=== PATIENT | female | born 1980 | race African-American/Black ===

== ENCOUNTER 2019-11-16 02:28 | Emergency (ER) | payer SELFPAY ==
[2006-06-30 20:05] VITALS: BP 112/61
[~2019-11-16] VITALS: Ht 165.1 cm; Wt 98.6 kg
[~2019-11-16 02:28] MED LIST: ABILIFY5 MG PO; BACTRIM DS 8001 TAB PO; CEPHALEXIN500 M1 PO; EFFEXOR 75M75 MG/TAB PO; EFFEXOR-XR150 MG PO; ERY-TAB250 M1 PO; FLEXERIL 1010 MG/TAB PO; GLUCOPHAGE500 MG/TAB PO; HALDOL 5MG T5 MG/TAB PO; HCTZ12.5TAB PO; HTN MEDICATION; KEFLEX500 MG PO; MEDROL 4MG DOSPA4 MG PO; NORCO 325 MG-51 TAB PO; NORCO 325 MG-7.1 TAB PO; PERCOCET 325 MG1 TA2 PO; PRINIVIL10 MG PO; PRINIVIL20 MG PO; RISPERDAL 1M1 MG/TAB PO; SEPTRA DS 8001 TAB PO; TYLENOL 325MG325 MG PO; ZOCOR 10MG10 MG PO
[2019-11-16 02:37] VITALS: TEMP 98.1
[2019-11-16 03:53] LABS: COLLECTION METHOD CLEAN CATCH
[2019-11-16 03:56] LABS: BASO % 0.4 % (0.0-2.0); EOS # 0.4 (0.0-0.7); EOS % 3.9 % (0-4.0); GRAN # 6.3 (1.4-6.5); GRAN % 58.7 % (42.2-75.2); HEMOGLOBIN 10.7 g/dl (12.5-16.0); LYMPH # 3.4 (1.2-3.4); LYMPH % 31.6 % (20.0-51.0); MEAN CELL VOLUME 86 fl (80.0-100.0); MEAN CORPUSCULAR HEMOGLOBIN 28 pg (27.0-31.0); MEAN CORPUSCULAR HGB CONC 32 g/dl (33.0-37.0); MEAN PLATELET VOLUME 9.1 fl (7.4-10.4); MONO # 0.5 (0.1-0.6); MONO % 5.1 % (1.7-9.3); PLATELET COUNT 311 K/mm3 (130-400); RED BLOOD COUNT 3.82 M/mm3 (4.10-5.30); REDCELL DISTRIBUTION WIDTH-CV 13.8 % (11.5-14.5)
[2019-11-16 04:03] LABS: MUCOUS Present /lpf; PH 6 (5-8); URINE APPEARANCE Hazy; URINE BACTERIA Rare /hpf; URINE BILIRUBIN Negative (NEGATIVE); URINE BLOOD Negative (NEGATIVE); URINE COLOR Yellow; URINE GLUCOSE Negative (NEGATIVE); URINE KETONE Negative (NEGATIVE); URINE LEUKOCYTE ESTERASE Negative (NEGATIVE); URINE NITRATE Negative (NEGATIVE); URINE PROTEIN(semi-quant) Negative (NEGATIVE); URINE RBC 0-2 /hpf; URINE UROBILINOGEN Negative (NEGATIVE)
[2019-11-16 04:08] LABS: ALBUMIN 3.6 gm/dL (3.5-5.0); BILIRUBIN,TOTAL 0.1 mg/dL (0.0-1.0); C-REACTIVE PROTEIN 1.9 mg/dL (0.0-0.9); CALCIUM 9.2 mg/dL (8.4-10.2); CREATININE, serum 0.56 (0.52-1.25); POTASSIUM 3.8 mmol/L (3.4-5.0); TOTAL PROTEIN 7.2 gm/dL (6.4-8.2)
[2019-11-16 07:12] VITALS: BP 152/92; PULSE 76
== END 2019-11-16 07:12 | disposition home or self-care (01) ==
LOC: COL.ER 02:28
PROVIDERS: Emergency Medicine
DX: R10.32 Left lower quadrant pain (principal); R10.31 Right lower quadrant pain
CPT/HCPCS: J7030; Q9967

== ENCOUNTER 2020-01-20 18:35 | Emergency (ER) | payer SELFPAY ==
[2006-06-30 20:05] VITALS: BP 112/61
[~2020-01-20] VITALS: Ht 167.6 cm; Wt 106.4 kg
[2020-01-20 18:37] VITALS: TEMP 98.7
[2020-01-20 19:04] LABS: BASO % 0.4 % (0.0-2.0); EOS # 0.2 (0.0-0.7); EOS % 1.7 % (0-4.0); GRAN # 6.6 (1.4-6.5); GRAN % 61.1 % (42.2-75.2); HEMATOCRIT 36.4 % (37.0-47.0); HEMOGLOBIN 11.7 g/dl (12.5-16.0); LYMPH # 3.3 (1.2-3.4); LYMPH % 31.2 % (20.0-51.0); MEAN CELL VOLUME 84 fl (80.0-100.0); MEAN CORPUSCULAR HEMOGLOBIN 27 pg (27.0-31.0); MEAN CORPUSCULAR HGB CONC 32 g/dl (33.0-37.0); MEAN PLATELET VOLUME 9.2 fl (7.4-10.4); MONO # 0.6 (0.1-0.6); MONO % 5.4 % (1.7-9.3); PLATELET COUNT 392 K/mm3 (130-400); RED BLOOD COUNT 4.33 M/mm3 (4.10-5.30); REDCELL DISTRIBUTION WIDTH-CV 14.3 % (11.5-14.5)
[2020-01-20 19:08] LABS: ALBUMIN 4.3 gm/dL (3.5-5.0); BILIRUBIN,TOTAL 0.5 mg/dL (0.0-1.0); C-REACTIVE PROTEIN 2.1 mg/dL (0.0-0.9); CALCIUM 9.6 mg/dL (8.4-10.2); CREATININE, serum 0.54 (0.52-1.25); POTASSIUM 3.6 mmol/L (3.4-5.0); TOTAL PROTEIN 8.6 gm/dL (6.4-8.2)
[2020-01-20 19:22] LABS: PROLACTIN 9.1 ng/mL (3.0-18.6)
[2020-01-20 20:30] VITALS: BP 115/76; PULSE 76
== END 2020-01-20 20:30 | disposition home or self-care (01) ==
LOC: COL.ER 18:35
PROVIDERS: Emergency Medicine
DX: R56.9 Unspecified convulsions (principal); E11.9 Type 2 diabetes mellitus without complications; Z79.84 Long term (current) use of oral hypoglycemic drugs
CPT/HCPCS: J2060; J7030

== ENCOUNTER → 2020-03-02 | Outpatient (CLI) | payer SELFPAY | LOC: COL.CARD 08:54 | DX: G40.909 Epilepsy, unspecified, not intractable, without status epilepticus (principal) ==

== ENCOUNTER → 2020-04-22 | Emergency (ER) | payer SELFPAY ==
[2006-06-30 20:05] VITALS: BP 112/61
[~2020-04-22] VITALS: Ht 167.6 cm; Wt 110.5 kg
[2020-04-22 08:34] VITALS: BP 131/85; PULSE 81; TEMP 98.1
[2020-04-22 09:36] LABS: COLLECTION METHOD CLEAN CATCH
[2020-04-22 09:42] LABS: BASO % 0.3 % (0.0-2.0); EOS # 0.4 (0.0-0.7); EOS % 4.6 % (0-4.0); GRAN # 4.9 (1.4-6.5); GRAN % 55.1 % (42.2-75.2); HEMOGLOBIN 11.5 g/dl (12.5-16.0); LYMPH # 3.1 (1.2-3.4); LYMPH % 35.1 % (20.0-51.0); MEAN CELL VOLUME 85 fl (80.0-100.0); MEAN CORPUSCULAR HEMOGLOBIN 28 pg (27.0-31.0); MEAN CORPUSCULAR HGB CONC 33 g/dl (33.0-37.0); MEAN PLATELET VOLUME 8.8 fl (7.4-10.4); MONO # 0.4 (0.1-0.6); MONO % 4.7 % (1.7-9.3); PLATELET COUNT 341 K/mm3 (130-400); RED BLOOD COUNT 4.17 M/mm3 (4.10-5.30); REDCELL DISTRIBUTION WIDTH-CV 14.2 % (11.5-14.5)
[2020-04-22 09:45] LABS: HEMATOCRIT 35.4 % (37.0-47.0); MUCOUS Present /lpf; PH 5 (5-8); SQUAMOUS EPITHELIAL 0-2 /hpf; URINE APPEARANCE Clear; URINE BACTERIA None Seen /hpf; URINE BILIRUBIN Negative (NEGATIVE); URINE BLOOD 1+ (NEGATIVE); URINE COLOR Yellow; URINE GLUCOSE 1+ (NEGATIVE); URINE KETONE Negative (NEGATIVE); URINE LEUKOCYTE ESTERASE Negative (NEGATIVE); URINE NITRATE Negative (NEGATIVE); URINE PROTEIN(semi-quant) Negative (NEGATIVE); URINE UROBILINOGEN Negative (NEGATIVE)
[2020-04-22 09:54] LABS: ALBUMIN 3.7 gm/dL (3.5-5.0); BILIRUBIN,TOTAL 0.2 mg/dL (0.0-1.0); CALCIUM 8.7 mg/dL (8.4-10.2); CREATININE, serum 0.54 (0.52-1.25); POTASSIUM 3.9 mmol/L (3.4-5.0); TOTAL PROTEIN 7.2 gm/dL (6.4-8.2)
[2020-04-22 10:07] LABS: C-REACTIVE PROTEIN 1.4 mg/dL (0.0-0.9)
== END ==
LOC: COL.ER 08:25
PROVIDERS: Physician Assistant
DX: K59.00 Constipation, unspecified (principal); R10.9 Unspecified abdominal pain; E11.9 Type 2 diabetes mellitus without complications; F17.210 Nicotine dependence, cigarettes, uncomplicated; Z88.8 Allergy status to other drugs, medicaments and biological substances; Z79.4 Long term (current) use of insulin
CPT/HCPCS: J1790; J7030

== ENCOUNTER → 2020-05-09 | Outpatient (CLI) | payer SELFPAY | LOC: COL.RAD 06:33 | DX: R10.84 Generalized abdominal pain (principal) ==

== ENCOUNTER 2020-11-18 21:29 | Emergency (ER) | payer SELFPAY ==
[~2020-11-18] VITALS: Ht 165.1 cm; Wt 110.5 kg
[2020-11-18 21:49] LABS: BASO # 0.1 (0.0-0.2); BASO % 0.4 % (0.0-2.0); EOS # 0.4 (0.0-0.7); EOS % 2.8 % (0-4.0); GRAN # 7.9 (1.4-6.5); HEMATOCRIT 38.8 % (37.0-47.0); LYMPH # 4.6 (1.2-3.4); LYMPH % 33.7 % (20.0-51.0); MEAN CELL VOLUME 85 fl (80.0-100.0); MEAN CORPUSCULAR HEMOGLOBIN 28 pg (27.0-31.0); MEAN CORPUSCULAR HGB CONC 34 g/dl (33.0-37.0); MEAN PLATELET VOLUME 9.5 fl (7.4-10.4); MONO # 0.6 (0.1-0.6); MONO % 4.7 % (1.7-9.3); PLATELET COUNT 330 K/mm3 (130-400); RED BLOOD COUNT 4.59 M/mm3 (4.10-5.30); REDCELL DISTRIBUTION WIDTH-CV 15.2 % (11.5-14.5)
[2020-11-18] MEDS ORDERED: VIMPAT100 MG PO (23:06)
[2020-11-18 23:10] LABS: ALANINE AMINOTRANSFERASE 16 U/L (4-34); ALBUMIN 3.8 gm/dL (3.5-5.0); ALKALINE PHOSPHATASE 124 U/L (50-136); ANION GAP 8 mmol/L (7-16); AST,SGOT 24 U/L (15-37); BILIRUBIN,TOTAL < 0.1 mg/dL (0.0-1.0); BLOOD UREA NITROGEN 13 mg/dL (7-17); CARBON DIOXIDE 24 mmol/L (22-30); CHLORIDE 105 mmol/L (98-107); CREATININE, serum 0.56 (0.52-1.25); GLUCOSE 125 mg/dL (74-106); POTASSIUM 3.8 mmol/L (3.4-5.0); SODIUM 137 mmol/L (137-145); TOTAL PROTEIN 7.9 gm/dL (6.4-8.2)
[2020-11-19 00:30] LABS: COLLECTION METHOD CLEAN CATCH
[2020-11-19 00:35] LABS: MUCOUS Present /lpf; PH 5 (5-8); SQUAMOUS EPITHELIAL 0-2 /hpf; URINE APPEARANCE Hazy; URINE BACTERIA None Seen /hpf; URINE BILIRUBIN Negative (NEGATIVE); URINE BLOOD Negative (NEGATIVE); URINE COLOR Yellow; URINE GLUCOSE Negative (NEGATIVE); URINE KETONE Negative (NEGATIVE); URINE LEUKOCYTE ESTERASE Negative (NEGATIVE); URINE NITRATE Negative (NEGATIVE); URINE PROTEIN(semi-quant) Negative (NEGATIVE); URINE UROBILINOGEN Negative (NEGATIVE)
[2020-11-19 01:07] VITALS: BP 106/58; PULSE 78; TEMP 98.6
== END 2020-11-19 01:08 | disposition home or self-care (01) ==
LOC: COL.ER 21:29
PROVIDERS: Emergency Medicine
DX: G40.909 Epilepsy, unspecified, not intractable, without status epilepticus (principal); D72.829 Elevated white blood cell count, unspecified; E11.9 Type 2 diabetes mellitus without complications; Z32.02 Encounter for pregnancy test, result negative; Z88.8 Allergy status to other drugs, medicaments and biological substances
CPT/HCPCS: C9254; J1953; J2060

== ENCOUNTER 2020-12-29 05:18 | Emergency (ER) | payer MEDICAID ==
[2006-06-30 20:05] VITALS: BP 112/61
[~2020-12-29] VITALS: Ht 167.6 cm; Wt 110.0 kg
[~2020-12-29 05:18] MED LIST changes: +VIMPAT100 MG PO
[2020-12-29 05:19] VITALS: TEMP 97.8
[2020-12-29 05:48] LABS: BASO % 0.2 % (0.0-2.0); EOS # 0.4 (0.0-0.7); EOS % 4.3 % (0-4.0); GRAN % 51.2 % (42.2-75.2); LYMPH # 3.8 (1.2-3.4); LYMPH % 38.7 % (20.0-51.0); MEAN CELL VOLUME 87 fl (80.0-100.0); MEAN CORPUSCULAR HEMOGLOBIN 28 pg (27.0-31.0); MEAN CORPUSCULAR HGB CONC 33 g/dl (33.0-37.0); MONO # 0.5 (0.1-0.6); MONO % 5.4 % (1.7-9.3); PLATELET COUNT 320 K/mm3 (130-400); RED BLOOD COUNT 4.25 M/mm3 (4.10-5.30); REDCELL DISTRIBUTION WIDTH-CV 14.1 % (11.5-14.5)
[2020-12-29 05:49] LABS: HEMATOCRIT 36.8 % (37.0-47.0)
[2020-12-29 05:59] LABS: ALBUMIN 3.8 gm/dL (3.5-5.0); BILIRUBIN,TOTAL 0.1 mg/dL (0.0-1.0); CALCIUM 9.2 mg/dL (8.4-10.2); CREATININE, serum 0.48 (0.52-1.25); POTASSIUM 3.4 mmol/L (3.4-5.0); TOTAL PROTEIN 7.5 gm/dL (6.4-8.2)
[2020-12-29 06:25] LABS: COLLECTION METHOD CLEAN CATCH
[2020-12-29 06:34] LABS: MUCOUS Present /lpf; PH 6 (5-8); SQUAMOUS EPITHELIAL 0-2 /hpf; URINE APPEARANCE Clear; URINE BACTERIA None Seen /hpf; URINE BILIRUBIN Negative (NEGATIVE); URINE BLOOD Negative (NEGATIVE); URINE COLOR Yellow; URINE GLUCOSE 1+ (NEGATIVE); URINE KETONE Negative (NEGATIVE); URINE LEUKOCYTE ESTERASE Negative (NEGATIVE); URINE NITRATE Negative (NEGATIVE); URINE PROTEIN(semi-quant) Negative (NEGATIVE); URINE UROBILINOGEN Negative (NEGATIVE); URINE WBC 0-2 /hpf
[2020-12-29] MEDS ORDERED: PEPCID 20MG TAB20 MG PO (07:12)
[2020-12-29] MEDS ORDERED: ZOFRAN ODT4 MG PO (07:12)
[2020-12-29 07:21] VITALS: BP 148/104; PULSE 78
== END 2020-12-29 07:20 | disposition home or self-care (01) ==
LOC: COL.ER 05:18
PROVIDERS: Emergency Medicine
DX: R10.11 Right upper quadrant pain (principal); I10 Essential (primary) hypertension; E11.9 Type 2 diabetes mellitus without complications; G40.909 Epilepsy, unspecified, not intractable, without status epilepticus; F17.210 Nicotine dependence, cigarettes, uncomplicated; Z88.8 Allergy status to other drugs, medicaments and biological substances; Z79.899 Other long term (current) drug therapy
CPT/HCPCS: J7030; Q9967

== ENCOUNTER 2021-02-20 13:02 | Emergency (ER) | payer MEDICAID ==
[~2021-02-20] VITALS: Ht 165.1 cm; Wt 110.5 kg
[~2021-02-20 13:02] MED LIST changes: +PEPCID 20MG TAB20 MG PO; +ZOFRAN ODT4 MG PO
[2021-02-20 13:08] VITALS: TEMP 98.1
[2021-02-20 13:42] LABS: BASO % 0.5 % (0.0-2.0); EOS # 0.3 (0.0-0.7); EOS % 3.4 % (0-4.0); GRAN # 4.1 (1.4-6.5); HEMATOCRIT 39.1 % (37.0-47.0); HEMOGLOBIN 12.7 g/dl (12.5-16.0); LYMPH # 3.7 (1.2-3.4); LYMPH % 42.9 % (20.0-51.0); MEAN CELL VOLUME 89 fl (80.0-100.0); MEAN CORPUSCULAR HEMOGLOBIN 29 pg (27.0-31.0); MEAN CORPUSCULAR HGB CONC 33 g/dl (33.0-37.0); MEAN PLATELET VOLUME 9.3 fl (7.4-10.4); MONO # 0.4 (0.1-0.6); MONO % 4.9 % (1.7-9.3); PLATELET COUNT 307 K/mm3 (130-400)
[2021-02-20 13:52] LABS: CALCIUM 8.8 mg/dL (8.4-10.2); CREATININE, serum 0.47 (0.52-1.25); POTASSIUM 3.9 mmol/L (3.4-5.0)
[2021-02-20] MEDS ORDERED: KEPPRA 500MG500 MG PO (13:59)
[2021-02-20] MEDS ORDERED: DILANTIN 100MG100 MG PO (13:59)
[2021-02-20 14:18] VITALS: BP 142/83; PULSE 78
== END 2021-02-20 14:23 | disposition home or self-care (01) ==
LOC: COL.ER 13:02
PROVIDERS: Emergency Medicine
DX: G40.909 Epilepsy, unspecified, not intractable, without status epilepticus (principal); E11.9 Type 2 diabetes mellitus without complications; Z91.14 Patient's other noncompliance with medication regimen; Z79.899 Other long term (current) drug therapy

== ENCOUNTER → 2021-04-18 | Outpatient (CLI) | payer MEDICAID ==
[~2021-04-18] MED LIST changes: +DILANTIN 100MG100 MG PO; +KEPPRA 500MG500 MG PO; +OMNICEF 300MG300 MG PO
== END ==
LOC: COL.CARD 10:00
DX: G40.909 Epilepsy, unspecified, not intractable, without status epilepticus (principal)

== ENCOUNTER 2021-05-29 14:46 | Emergency (ER) | payer MEDICAID ==
[~2021-05-29] VITALS: Ht 165.1 cm; Wt 111.8 kg
[~2021-05-29 14:46] MED LIST changes: -OMNICEF 300MG300 MG PO
[2021-05-29 15:21] VITALS: TEMP 98.2
[2021-05-29 16:10] LABS: BASO % 0.4 % (0.0-2.0); EOS # 0.4 K/mm3 (0.0-0.7); EOS % 3.8 % (0-4.0); GRAN # 5.2 K/mm3 (1.4-6.5); GRAN % 49.9 % (42.2-75.2); HEMATOCRIT 38.6 % (37.0-47.0); HEMOGLOBIN 13.2 g/dl (12.5-16.0); LYMPH # 4.3 K/mm3 (1.2-3.4); LYMPH % 41.6 % (20.0-51.0); MEAN CELL VOLUME 85 fl (80.0-100.0); MEAN CORPUSCULAR HEMOGLOBIN 29 pg (27.0-31.0); MEAN CORPUSCULAR HGB CONC 34 g/dl (33.0-37.0); MONO # 0.4 K/mm3 (0.1-0.6); MONO % 4.2 % (1.7-9.3); PLATELET COUNT 318 K/mm3 (130-400); RED BLOOD COUNT 4.52 M/mm3 (4.10-5.30)
[2021-05-29 16:31] LABS: ALBUMIN 3.4 gm/dL (3.5-5.0); BILIRUBIN,TOTAL 0.2 mg/dL (0.2-1.2); C-REACTIVE PROTEIN 2.72 mg/dL (0.00-0.50); CREATININE, serum 0.87 mg/dL (0.57-1.11); POTASSIUM 3.8 mmol/L (3.5-4.5); TOTAL PROTEIN 7.4 gm/dL (6.2-8.1)
[2021-05-29 18:09] LABS: COLLECTION METHOD CLEAN CATCH
[2021-05-29 18:18] LABS: PH 8 (5-8); SQUAMOUS EPITHELIAL 0-2 /hpf; URINE APPEARANCE Hazy; URINE BACTERIA None Seen /hpf; URINE BILIRUBIN Negative (NEGATIVE); URINE BLOOD 3+ (NEGATIVE); URINE COLOR Yellow; URINE GLUCOSE 3+ (NEGATIVE); URINE KETONE Negative (NEGATIVE); URINE LEUKOCYTE ESTERASE 1+ (NEGATIVE); URINE NITRATE Negative (NEGATIVE); URINE PROTEIN(semi-quant) Negative (NEGATIVE); URINE RBC >50 /hpf; URINE UROBILINOGEN Negative (NEGATIVE)
[2021-05-29] MEDS ORDERED: OMNICEF 300MG300 MG PO (18:36)
[2021-05-29 19:00] VITALS: BP 130/87; PULSE 89
== END 2021-05-29 19:00 | disposition home or self-care (01) ==
LOC: COL.ER 14:46
PROVIDERS: Family Medicine
DX: N39.0 Urinary tract infection, site not specified (principal); R63.5 Abnormal weight gain; D72.829 Elevated white blood cell count, unspecified; I10 Essential (primary) hypertension; G40.909 Epilepsy, unspecified, not intractable, without status epilepticus; E11.65 Type 2 diabetes mellitus with hyperglycemia; Z32.02 Encounter for pregnancy test, result negative; Z79.899 Other long term (current) drug therapy
CPT/HCPCS: J1815; J2405; J7120

== ENCOUNTER 2021-07-18 07:33 | Emergency (ER) | payer MEDICAID ==
[~2021-07-18] VITALS: Ht 165.1 cm; Wt 114.5 kg
[~2021-07-18 07:33] MED LIST changes: +OMNICEF 300MG300 MG PO
[2021-07-18 07:36] VITALS: TEMP 98.4
[2021-07-18 08:17] LABS: COLLECTION METHOD CLEAN CATCH
[2021-07-18 08:25] LABS: BASO # 0.1 K/mm3 (0.0-0.2); BASO % 0.4 % (0.0-2.0); EOS # 0.3 K/mm3 (0.0-0.7); EOS % 2.5 % (0.0-4.0); GRAN # 6.7 K/mm3 (1.4-6.5); HEMOGLOBIN 13.2 g/dl (12.5-16.0); LYMPH # 4.2 K/mm3 (1.2-3.4); LYMPH % 35.6 % (20.0-51.0); MEAN CELL VOLUME 86 fl (80.0-100.0); MEAN CORPUSCULAR HEMOGLOBIN 29 pg (27-31); MEAN CORPUSCULAR HGB CONC 34 g/dl (33.0-37.0); MEAN PLATELET VOLUME 9.3 fl (7.4-10.4); MONO # 0.5 K/mm3 (0.1-0.6); MONO % 4.2 % (1.7-9.3); PLATELET COUNT 352 K/mm3 (130-400); RED BLOOD COUNT 4.55 M/mm3 (4.10-5.30); REDCELL DISTRIBUTION WIDTH-CV 11.9 % (11.5-14.5)
[2021-07-18 08:39] LABS: MUCOUS Present (NOT PRESENT); PH 6 (5-8); SQUAMOUS EPITHELIAL None Seen /hpf (0-10); URINE APPEARANCE Clear (CLEAR/HAZY); URINE BACTERIA Rare /hpf (NONE SEEN); URINE BILIRUBIN Negative (NEGATIVE); URINE BLOOD Negative (NEGATIVE); URINE COLOR Yellow (YELLOW); URINE GLUCOSE 2+ (NEGATIVE); URINE KETONE Negative (NEGATIVE); URINE LEUKOCYTE ESTERASE Negative (NEGATIVE); URINE NITRATE Negative (NEGATIVE); URINE PROTEIN(semi-quant) Negative (NEGATIVE); URINE UROBILINOGEN Negative (NEGATIVE)
[2021-07-18 08:46] LABS: ALBUMIN 3.3 gm/dL (3.5-5.0); BILIRUBIN,TOTAL 0.3 mg/dL (0.2-1.2); CALCIUM 9.1 mg/dL (8.4-10.2); CREATININE, serum 0.7 mg/dL (0.57-1.11); POTASSIUM 3.6 mmol/L (3.5-4.5); TOTAL PROTEIN 7.4 gm/dL (6.2-8.1)
[2021-07-18] MEDS ORDERED: ROBAXIN 75750 MG/TAB PO (10:07)
[2021-07-18] MEDS ORDERED: NORCO 325 MG-51 TAB PO (10:07)
[2021-07-18] MEDS ORDERED: CEPHALEXIN500 M1 PO (10:07)
[2021-07-18 10:49] VITALS: BP 136/72; PULSE 88
== END 2021-07-18 10:49 | disposition home or self-care (01) ==
LOC: COL.ER 07:33
PROVIDERS: Emergency Medicine
DX: N12 Tubulo-interstitial nephritis, not specified as acute or chronic (principal); N13.30 Unspecified hydronephrosis; D72.829 Elevated white blood cell count, unspecified; G40.909 Epilepsy, unspecified, not intractable, without status epilepticus; E11.9 Type 2 diabetes mellitus without complications; Z79.899 Other long term (current) drug therapy
CPT/HCPCS: J1885; J2270; J2405; J7030; Q9967

== ENCOUNTER 2021-07-24 11:08 | Emergency (ER) | payer MEDICAID ==
[~2021-07-24] VITALS: Ht 165.1 cm; Wt 115.0 kg
[~2021-07-24 11:08] MED LIST changes: +ROBAXIN 75750 MG/TAB PO
[2021-07-24 11:09] VITALS: BP 90/57; TEMP 98.4
[2021-07-24] MEDS ORDERED: LANTUS SOLOS100 U/ML SQ (11:14)
[2021-07-24] MEDS ORDERED: NORVASC 10MG10 MG PO (11:14)
[2021-07-24 11:51] LABS: COLLECTION METHOD CLEAN CATCH
[2021-07-24 11:57] LABS: MUCOUS Present (NOT PRESENT); PH 6 (5-8); SQUAMOUS EPITHELIAL 0-2 /hpf (0-10); URINE APPEARANCE Clear (CLEAR/HAZY); URINE BACTERIA None Seen /hpf (NONE SEEN); URINE BILIRUBIN Positive (NEGATIVE); URINE BLOOD Negative (NEGATIVE); URINE COLOR Yellow (YELLOW); URINE GLUCOSE Negative (NEGATIVE); URINE KETONE Negative (NEGATIVE); URINE LEUKOCYTE ESTERASE Negative (NEGATIVE); URINE NITRATE Negative (NEGATIVE); URINE PROTEIN(semi-quant) Negative (NEGATIVE); URINE RBC 0-2 /hpf (0-2); URINE UROBILINOGEN Negative (NEGATIVE)
[2021-07-24] MEDS ORDERED: PERCOCET 325 MG1 TA2 PO (13:02)
[2021-07-24] MEDS ORDERED: MOTRIN 600600 MG/TAB PO (13:02)
[2021-07-24 13:09] VITALS: PULSE 83
== END 2021-07-24 13:15 | disposition home or self-care (01) ==
LOC: COL.ER 11:08
PROVIDERS: Nurse Practitioner
DX: R10.9 Unspecified abdominal pain (principal); E11.9 Type 2 diabetes mellitus without complications; Z79.4 Long term (current) use of insulin; Z86.69 Personal history of other diseases of the nervous system and sense organs

== ENCOUNTER 2021-08-03 14:14 | Emergency (ER) | payer MEDICAID ==
[~2021-08-03] VITALS: Ht 167.6 cm; Wt 114.1 kg
[~2021-08-03 14:14] MED LIST changes: +LANTUS SOLOS100 U/ML SQ; +MOTRIN 600600 MG/TAB PO; +NORVASC 10MG10 MG PO
[2021-08-03 14:17] VITALS: BP 146/83; TEMP 98
[2021-08-03] MEDS ORDERED: BACTRIM DS 8001 TAB PO ×2 (14:40→14:41)
[2021-08-03] MEDS ORDERED: NORCO 325 MG-51 TAB PO (14:41)
[2021-08-03 14:55] VITALS: PULSE 70
== END 2021-08-03 14:55 | disposition home or self-care (01) ==
LOC: COL.ER 14:14
DX: N64.4 Mastodynia (principal); G40.909 Epilepsy, unspecified, not intractable, without status epilepticus; E11.9 Type 2 diabetes mellitus without complications; Z87.891 Personal history of nicotine dependence; Z79.899 Other long term (current) drug therapy; Z79.4 Long term (current) use of insulin; Z32.02 Encounter for pregnancy test, result negative

== ENCOUNTER → 2021-12-07 | Outpatient (CLI) | payer MEDICAID | LOC: COL.RAD 13:38 | DX: K21.9 Gastro-esophageal reflux disease without esophagitis (principal) ==

== ENCOUNTER 2022-01-15 05:40 | Emergency (ER) | payer MEDICAID ==
[~2022-01-15] VITALS: Ht 165.1 cm; Wt 111.8 kg
[2022-01-15 05:44] VITALS: BP 154/91; TEMP 98.6
[2022-01-15] MEDS ORDERED: PREDNISONE20 MG PO ×3 (06:22→07:59)
[2022-01-15] MEDS ORDERED: PROAIR HFA0.09 MG/AC IH ×3 (06:22→07:59)
[2022-01-15 07:05] VITALS: PULSE 98
== END 2022-01-15 07:05 | disposition home or self-care (01) ==
LOC: COL.ER 05:40
DX: J70.8 Respiratory conditions due to other specified external agents (principal)
CPT/HCPCS: J1100

== ENCOUNTER 2022-09-14 23:23 | Emergency (ER) | payer MEDICAID ==
[~2022-09-14] VITALS: Ht 165.1 cm; Wt 104.5 kg
[~2022-09-14 23:23] MED LIST changes: +PREDNISONE20 MG PO; +PROAIR HFA0.09 MG/AC IH
[2022-09-14 23:27] VITALS: TEMP 98.1
[2022-09-15 01:14] VITALS: BP 150/99; PULSE 84
== END 2022-09-15 01:17 | disposition home or self-care (01) ==
LOC: COL.ER 23:23
DX: S60.452A Superficial foreign body of right middle finger, initial encounter (principal); F17.210 Nicotine dependence, cigarettes, uncomplicated; W45.8XXA Other foreign body or object entering through skin, initial encounter

== ENCOUNTER 2023-08-01 14:58 | Emergency (ER) | payer OTHER, MEDICAID ==
[~2023-08-01] VITALS: Ht 167.6 cm; Wt 104.5 kg
[~2023-08-01 14:58] MED LIST changes: +SENNA-S 50 MG-81 TAB PO
[2023-08-01 15:18] VITALS: TEMP 97.6
[2023-08-01 17:19] LABS: COLLECTION METHOD CLEAN CATCH
[2023-08-01 17:23] LABS: BASO % 0.4 % (0.0-2.0); EOS # 0.3 K/mm3 (0.0-0.7); EOS % 2.4 % (0.0-4.0); GRAN # 5.6 K/mm3 (1.4-6.5); GRAN % 51.3 % (42.2-75.2); HEMATOCRIT 39.9 % (37.0-47.0); HEMOGLOBIN 13.4 g/dl (12.5-16.0); LYMPH # 4.5 K/mm3 (1.2-3.4); MEAN CELL VOLUME 84 fl (80.0-100.0); MEAN CORPUSCULAR HEMOGLOBIN 28 pg (27-31); MEAN CORPUSCULAR HGB CONC 34 g/dl (33.0-37.0); MONO # 0.5 K/mm3 (0.1-0.6); MONO % 4.7 % (1.7-9.3); PLATELET COUNT 394 K/mm3 (130-400); RED BLOOD COUNT 4.77 M/mm3 (4.10-5.30); REDCELL DISTRIBUTION WIDTH-CV 13.3 % (11.5-14.5)
[2023-08-01 17:46] LABS: PH 5.5 (5.0-8.5); URINE APPEARANCE Cloudy (CLEAR/HAZY); URINE BLOOD 3+ (NEGATIVE); URINE COLOR Yellow (YELLOW); URINE GLUCOSE TRACE (NEGATIVE); URINE KETONE TRACE (NEGATIVE); URINE NITRATE Negative (NEGATIVE); URINE PROTEIN(semi-quant) 2+ (NEGATIVE)
[2023-08-01 17:47] LABS: SQUAMOUS EPITHELIAL 0-2 /hpf (0-10); URINE BACTERIA Rare /hpf (NONE SEEN); URINE RBC >50 /hpf (0-2)
[2023-08-01 17:49] LABS: ALBUMIN 3.7 gm/dL (3.5-5.0); BILIRUBIN,TOTAL 0.2 mg/dL (0.2-1.2); CALCIUM 9.4 mg/dL (8.4-10.2); CREATININE, serum 0.72 mg/dL (0.57-1.11); POTASSIUM 3.6 mmol/L (3.5-4.5); TOTAL PROTEIN 8.3 gm/dL (6.2-8.1)
[2023-08-01 18:48] VITALS: BP 143/74; PULSE 74
== END 2023-08-01 18:48 | disposition home or self-care (01) ==
LOC: COL.ER 14:58
PROVIDERS: Physician Assistant
DX: R10.9 Unspecified abdominal pain (principal); F17.210 Nicotine dependence, cigarettes, uncomplicated
CPT/HCPCS: J1790